=== PATIENT | female | born 1990 | race Caucasian/White ===

== ENCOUNTER → 2021-04-09 14:12 | Outpatient (CLI) | payer OTHER, SELFPAY ==
[2021-04-09 14:37] LABS: Pregnancy Test Urine Negative (Negative)
== END ==
PROVIDERS: Visit Provider Nurse Practitioner
DX: M54.5 Low back pain (principal); R31.9 Hematuria, unspecified; N93.9 Abnormal uterine and vaginal bleeding, unspecified
CPT/HCPCS: 81025; 87086

== ENCOUNTER → 2021-04-18 07:13 | Outpatient (CLI) | payer OTHER, SELFPAY ==
--- NOTE | 2021-04-18 07:15 | DI.US.S_ITS ---
PROCEDURE: US PELVIC COMPLETE INDICATIONS: IUD location, pelvic pain TECHNIQUE: Real-time scanning was performed of the pelvic organs, with image documentation. Additional endovaginal scanning was necessary due to incomplete visualization of the adnexal and endometrial structures by transabdominal scanning. COMPARISON: None. FINDINGS: Uterus: Uterus is normal in size at 3.9 x 4.9 x 8.1 cm. The endometrium is not accurately evaluated due to endometrial IUD positioning. Ovaries: Normal for age measuring 2.1 x 3.0 x 1.9 cm on the right and 2.7 x 2.1 x 1.9 cm on left. Other: No pathologic free abdominal or pelvic fluid. IMPRESSION: Centrally positioned IUD within the endometrial canal. Normal ovaries bilaterally. A definite source of pelvic pain is not seen. IUD positioning is considered normal. Dictated by: William Raymond M.D. on 04/18/2021 at 9:12 Approved by: William Raymond M.D. on 04/18/2021 at 9:14
[2021-04-18 09:06] LABS: Add Manual Diff / Slide Review NO; Basophils Absolute Auto 0 /uL (0-100); Basophils Percent Auto 0.6 % (0-2); Eosinophils Absolute Auto 100 /uL (0-450); Eosinophils Percent Auto 1.2 % (2-4); Hemoglobin 14.5 g/dL (12.0-16.0); Lymphocytes Absolute Auto 1700 /uL (1100-4500); Lymphocytes Percent Auto 20.5 % (25-40); Mean Corpuscular HGB Conc 33.7 % (30-36); Mean Corpuscular Hemoglobin 30.1 PG (26-34); Mean Corpuscular Volume 89.4 fL (80-100); Monocytes Absolute Auto 500 /uL (0-900); Monocytes Percent Auto 5.6 % (3-14); Neutrophils Absolute Auto 6100 /uL (1500-7000); Neutrophils Percent Auto 72.1 % (50-75); Platelet Count 282 X10^3/uL (150-400); Red Blood Cell Count 4.81 X10^6/uL (4.0-5.2); Red Cell Distribution Width 12.8 % (11.6-14.8); White Blood Cell Count 8.4 X10^3/uL (4.5-11.0)
[2021-04-18 09:44] LABS: Alanine Aminotransferase 22 IU/L (<35); Albumin 3.7 g/dL (3.5-5.0); Albumin Globulin Ratio 1.1 (1.0-2.8); Alkaline Phosphatase 82 U/L (38-126); Aspartate Aminotransferase 25 IU/L (14-36); BUN Creatinine Ratio 17.1 (6-22); Bilirubin Total 0.3 mg/dL (0.2-1.3); Blood Urea Nitrogen 12 mg/dL (7-17); Calcium 9.6 mg/dL (8.4-10.2); Carbon Dioxide 28 mmol/L (22-32); Chloride 104 mmol/L (98-107); Estimated Glomerular Filt Rate > 60.0 mL/min (>60); Globulin 3.4 g/dL (1.7-4.1); Glucose 113 mg/dL (70-100); HCG Quantitative /Beta subunit < 2.4 mIU/mL; HEMOLYSIS < 15 (0-50); Lipase 26 U/L (23-300); Potassium 4.9 mmol/L (3.4-5.1); Sodium 138 mmol/L (137-145); Total Protein 7.1 g/dL (6.3-8.2)
== END ==
PROVIDERS: Referring Provider Nurse Practitioner; Visit Provider Nurse Practitioner
DX: R10.2 Pelvic and perineal pain (principal); Z97.5 Presence of (intrauterine) contraceptive device
CPT/HCPCS: 36415; 76830; 76856; 80053; 83690; 84702; 85025

== ENCOUNTER 2021-10-23 19:12 | Emergency (ER) | payer OTHER, SELFPAY ==
[2021-10-23 19:19] VITALS: BP 164/83; PULSE 93; RESP 20; TEMP 36.3; O2SAT 97; BMI 52.9
--- NOTE | 2021-10-23 21:47 | ED.WOUNDLAC ---
HPI - Wound/Laceration General Chief Complaint: Wound/Laceration Stated Complaint: cut thumb/palm Time Seen by Provider: 10/23/21 21:15 Source: patient Mode of arrival: Ambulatory History of Present Illness HPI narrative: 31-year-old female smoker presents with a chief complaint of an accidental laceration to her left hand just prior to arrival. She was using a sharp, new, clean knife to remove zip ties from an object when it slipped and she lacerated her hand as described. She has pain and some bleeding but denies any numbness, tingling or weakness. She denies other injury. She states her tetanus status is not known. She is otherwise well and free of complaint Related Data Home Medications Medication Instructions Recorded Confirmed No Known Home Medications 04/09/21 09/25/21 Allergies Allergy/AdvReac Type Severity Reaction Status Date / Time No Known Drug Allergies Allergy Verified 09/25/21 09:59 Review of Systems Review of Systems Narrative: GENERAL: Denies chills, fatigue, malaise, fever, sweats. HEENT: Denies sinus pain, ear pain, sore throat, difficulty swallowing, dizziness. RESPIRATORY: Denies dyspnea, cough, wheezing, hemoptysis, sputum. CARDIOVASCULAR: Denies chest pain, palpitations, orthopnea, edema, GASTROINTESTINAL: Denies nausea, vomiting, abdominal pain, diarrhea, constipation, melena. : Denies dysuria, frequency, incontinence, hematuria, urinary retention. MUSCULOSKELETAL: See HPI SKIN: See HPI NEUROLOGIC: Denies weakness, headache, numbness, change in speech, confusion, seizures, incoordination. PSYCHIATRIC: No concerning psychosocial issues. 12 point review of systems is negative except for those stated above Patient History Medical History No significant medical problems Social History Smoking Status: Current some day smoker Smoking Status: Current some day smoker alcohol intake frequency: 0-2 drinks per day Substance Use Type: does not use Exam Narrative Exam Narrative: GEN: AOx3 and in mild distress EYES: Pupils are equal, round, and reactive to light and accommodation. Extraoccular muscles are intact bilaterally. There is no subconjunctival hemorrhage or exudate. CHEST: Lungs are clear to auscultation bilaterally and free of wheezes, rales, or rhonchi. Heart rate is regular rhythm, there are no murmurs, clicks, rubs, or gallops. There is no chest wall tenderness. ABD: Abdomen is soft and nontender. There is no guarding or rebound. Bowel sounds are normal in all 4 quadrants. There is no mass or organomegaly. EXT: 4 cm laceration overlying thenar eminence of left hand with a small flap. There is active bleeding and no evidence of foreign body. This is viewed in a bloodless field and no tendon involvement is noted. Full painless ROM of all extremities with no loss of sensation or strength. SKIN: Warm, pink, and dry. No erythema or rash Initial Vital Signs Initial Vital Signs: Vital Signs Temperature 97.4 F L 10/23/21 19:19 Pulse Rate 93 H 10/23/21 19:19 Respiratory Rate 20 10/23/21 19:19 Blood Pressure 164/83 H 10/23/21 19:19 Pulse Oximetry 97 10/23/21 19:19 Procedures Laceration Repair Laceration 1: Site: hand Side (If applicable): left Size (cm): 4 Description: flap Depth: involves muscle layer Local Anesthetic: lidocaine 1% and with bicarb Amount of anesthesia used (mL): 7 Pre-repair: wound explored and irrigated extensively Skin layer closed with: nylon Size (cm): 4-0 Number of sutures: 8 Technique: simple, interrupted Subcutaneous layer closed with: vicryl Size: 4-0 Number of sutures: 2 Technique: simple, interrupted Orthopedic Splinting/Casting Injury #1: Side: left Upper Extremity Injury Location: finger Upper Extremity Immobilizer: finger (other) (gauze) Post splinting neuro exam: intact Post splinting vascular exam: intact Placed by: Nursing Course Orders Ordered: Discontinued Medications Diphtheria/Tetanus/Acell Pertussis (Tet,Diph,Pertuss(Acell),Vac/Pf 0.5 Ml Syringe) 0.5 ml IM .ONCE ONE Stop: 10/23/21 21:49 Last Admin: 10/23/21 22:35 Dose: 0.5 ml Documented by: HA Lidocaine/Sodium Bicarbonate (Lido 1%/Sod Bicarb 8.4% (10ml) 10 Ml Syringe) 10 ml INJ NOW ONE Stop: 10/23/21 21:49 Last Admin: 10/23/21 22:34 Dose: 10 ml Documented by: HA Vital Signs Vital signs: Vital Signs - 8 hr 10/23/21 19:19 Temperature 97.4 F L Pulse Rate 93 H Respiratory Rate 20 Blood Pressure 164/83 H Pulse Oximetry 97 Discharge Plan Departure Patient Disposition: Home Clinical Impression: Laceration of left hand, complicated Instructions: DI for Laceration Repair Activity Restrictions/Additional Instructions: *You have been diagnosed with [left hand laceration] *What to do: *Please continue to take your regular medications as directed. [ ] New medication prescriptions sent to your pharmacy: [ ] [ ] New medication written as a paper prescription [x ] No new medications given * Please keep the wound clean and dry to the best of your ability. Please monitor for signs of infection such as redness to the skin or increasing pain. Have the sutures/celeste removed by your doctor in about 7 days. If you are unable to get into your doctor, we would be happy to remove the sutures/celeste in that same timeframe. *If you do not have a primary care provider please contact the [facility] Resource line at [phone]. They will ask some questions about your medical history and help get you set up with a doctor in the community. *Return to Emergency Department if you should have any new, worsening or concerning symptoms, such as [fever greater than 101 F, shaking chills, worsening pain, persistent vomiting or other bothersome symptoms] Prescriptions: No Action No Known Home Medications 0RF Referrals: Amanda Escobar ARNP [Primary Care Provider] -
[2021-10-23] MEDS: LIDO 1%/SOD BICARB 8.4% (10ML) 10 ML SYRINGE INJ (22:34)
[2021-10-23] MEDS: TET,DIPH,PERTUSS(ACELL),VAC/PF 0.5 ML SYRINGE IM (22:35)
== END 2021-10-23 23:34 | disposition home or self-care (01) ==
PROVIDERS: Emergency Provider Emergency Medicine; PCP Nurse Practitioner
DX: S61.412A Laceration without foreign body of left hand, initial encounter (principal); W26.0XXA Contact with knife, initial encounter; Z23 Encounter for immunization
CPT/HCPCS: 13132; 90471; 99283; 90715

== ENCOUNTER → 2022-01-30 07:45 | Outpatient (CLI) | payer OTHER, SELFPAY ==
[2022-01-30 08:58] LABS: Hemoglobin A1C% w Est Avg Glu 5.4 % (4.0-6.0)
[2022-01-30 09:16] LABS: Alanine Aminotransferase 21 IU/L (<35); Albumin 3.9 g/dL (3.5-5.0); Alkaline Phosphatase 77 U/L (38-126); Aspartate Aminotransferase 26 IU/L (14-36); BUN Creatinine Ratio 18.3 (6-22); Bilirubin Total 0.4 mg/dL (0.2-1.3); Blood Urea Nitrogen 13 mg/dL (7-17); C-Reactive Protein Quant 2.1 mg/dL (<1.0); Calcium 9.1 mg/dL (8.4-10.2); Carbon Dioxide 27 mmol/L (22-32); Chloride 104 mmol/L (98-107); Cholesterol 171 mg/dL (140-199); Estimated Glomerular Filt Rate > 60 mL/min (>60); Globulin 3.9 g/dL (1.7-4.1); Glucose 105 mg/dL (70-100); HDL Cholesterol 34 mg/dL (40-60); HEMOLYSIS < 15 (0-50); LDL Cholesterol Calculated 115 mg/dL (<100); Potassium 4.3 mmol/L (3.4-5.1); Sodium 138 mmol/L (137-145); Total Protein 7.8 g/dL (6.3-8.2); Triglycerides 109 mg/dL (35-150)
[2022-01-30 09:56] LABS: Add Manual Diff / Slide Review NO; Basophils Absolute Auto 0 /uL (0-100); Basophils Percent Auto 0.7 % (0-2); Eosinophils Absolute Auto 100 /uL (0-450); Eosinophils Percent Auto 1.7 % (2-4); Hematocrit 38.3 % (36-46); Hemoglobin 13.1 g/dL (12.0-16.0); Lymphocytes Absolute Auto 1700 /uL (1100-4500); Lymphocytes Percent Auto 24.5 % (25-40); Mean Corpuscular HGB Conc 34.2 % (30-36); Mean Corpuscular Volume 84.8 fL (80-100); Monocytes Absolute Auto 400 /uL (0-900); Monocytes Percent Auto 5.9 % (3-14); Neutrophils Absolute Auto 4700 /uL (1500-7000); Neutrophils Percent Auto 67.2 % (50-75); Platelet Count 308 X10^3/uL (150-400); Red Blood Cell Count 4.52 X10^6/uL (4.0-5.2); Red Cell Distribution Width 13.1 % (11.6-14.8); White Blood Cell Count 6.9 X10^3/uL (4.5-11.0)
[2022-01-30 10:37] LABS: Erythrocyte Sedimentation Rate 45 MM/HR (0-20)
[2022-01-30 11:20] LABS: TSH w/ Reflex to FT4 1.05 uIU/mL (0.47-4.68)
== END ==
PROVIDERS: PCP Family Medicine; Referring Provider Family Medicine; Visit Provider Family Medicine
DX: R53.83 Other fatigue (principal); R63.5 Abnormal weight gain; Z13.220 Encounter for screening for lipoid disorders
CPT/HCPCS: 36415; 80053; 80061; 83036; 84443; 85025; 85651; 86140

== ENCOUNTER → 2022-03-01 12:55 | Outpatient (CLI) | payer OTHER, SELFPAY ==
--- NOTE | 2022-03-01 13:00 | DIET.CONS ---
Dietary Consultation Note Assessment: 32y F attending [address] visit for help with abnormal weight gain and to get educated on bariatric surgery options. 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 Eating Hx: Parents when kids- pt went to [place] in summer with dad calling her his large kid, pt has supportive mom. Grandma showed love with food, [employer] club. Pt has large body frame similar to dad and that side of family. 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 Pt stopped drinking recently but has hx social drinking secondary to job, was smoking but stopped that too. Pt feels portion control is her biggest issue, tends to eat mostly healthy foods but does indulge in unhealthy options. Pt expresses being really hungry then overeating until overfilled because of it. Usual Day: wakes 6:45am B: 3 eggs c cheese, 1-2 turkey sausage or meat Coffee- 32oz white chocolate white coffee Americano c cinnamon and splash of almond milk or if at work uses creamer in black coffee Keeps snacks in fridge- grapes, pickles, cheese and meat, veggie tray L: leftovers- chicken or other meat c veggies and salad but sometimes veggies are gone. sometimes skips lunch, grabs bag chips, sometimes Charles Anderson drinks water but sometimes another coffee loves mcgriddles and breakfast burritos D: loves chicken thighs marinated or seasoned with (used to do pasta or rice), steamer bag veggies and salad bad nights-air fried chicken wings in blue cheese or Juanitas tortilla chips with sliced cheeses Lives in trailer so refrigeration is limited. Ht: 5'11 Wt: 411# BMI: 58 UBW: 200# in HS Nutrition Diagnosis: abnormal weight gain r/t excessive portion sizes secondary to poor meal timing aeb BMI 58, pt >400# with DEIDRA, food recall showing 32oz coffees, 3 egg omelets daily, frequent snacking. Interventions: 1. To address meal timing and portion sizes, educated pt on hunger scale. Pt will eat when a 3 and stop when an 8, pt will not eat unless a 3 and analyze factors around turning to food when above a 3. 2. Request pt monitor food intake using myfitnesspal to bring to visit next week. Set kcal levels to 2100. 3. Discussed smart swaps to start with. Pt will switch to 24oz coffee c 1/2 white chocolate. Pt will purchase [employer] blue cheese dressing at 50kcals/serving rather than regular with 200+kcals per serving. EER: 2100kcals (-1,000kcals from BMR) Monitoring/Evaluations: f/u in 1w to continue education and feeding plan Electronically Signed by: Nunu Howard 03/01/22 13:00 Clinical Dietitian [address] [id number]
[2022-03-01 14:02] VITALS: BMI 55.7
== END ==
PROVIDERS: PCP Nurse Practitioner; Referring Provider Family Medicine; Visit Provider Family Medicine
DX: R63.5 Abnormal weight gain (principal); Z68.43 Body mass index [BMI] 50.0-59.9, adult; Z71.3 Dietary counseling and surveillance
CPT/HCPCS: 97802

== ENCOUNTER → 2022-03-01 13:00 | Outpatient (CLI) | payer OTHER, SELFPAY ==
[2022-03-01 14:57] LABS: Add Manual Diff / Slide Review NO; Basophils Absolute Auto 100 /uL (0-100); Basophils Percent Auto 0.7 % (0-2); Eosinophils Absolute Auto 100 /uL (0-450); Eosinophils Percent Auto 1.5 % (2-4); Hemoglobin 13.5 g/dL (12.0-16.0); Lymphocytes Absolute Auto 2100 /uL (1100-4500); Lymphocytes Percent Auto 22.2 % (25-40); Mean Corpuscular HGB Conc 33.7 % (30-36); Mean Corpuscular Hemoglobin 28.4 PG (26-34); Mean Corpuscular Volume 84.3 fL (80-100); Monocytes Absolute Auto 500 /uL (0-900); Monocytes Percent Auto 5.5 % (3-14); Neutrophils Absolute Auto 6500 /uL (1500-7000); Neutrophils Percent Auto 70.1 % (50-75); Platelet Count 335 X10^3/uL (150-400); Red Blood Cell Count 4.74 X10^6/uL (4.0-5.2); White Blood Cell Count 9.3 X10^3/uL (4.5-11.0)
[2022-03-01 15:13] LABS: Erythrocyte Sedimentation Rate 25 MM/HR (0-20)
[2022-03-01 15:14] LABS: Creatine Kinase 93 U/L (30-135)
[2022-03-01 16:28] LABS: Appearance Urine UA CLEAR; Bilirubin Urine UA NEGATIVE (NEGATIVE); Color Urine UA YELLOW; Glucose Urine UA NEGATIVE (Negative); Ketones Urine UA NEGATIVE (NEGATIVE); Leukocyte Esterase Urine UA NEGATIVE (NEGATIVE); Nitrite Urine UA NEGATIVE (Negative); Occult Blood Urine UA NEGATIVE (Negative); Protein Urine UA NEGATIVE (Negative); Specific Gravity Urine UA 1.015 (1.000-1.035); Urobilinogen Urine UA 0.2 E.U./dL (0.2)
[2022-03-01 16:34] LABS: pH Urine UA 5.5 (4.5-8.0)
[2022-03-01 17:22] LABS: C-Reactive Protein Quant 2.3 mg/dL (<1.0)
[2022-03-01 17:35] LABS: RBC Urine None Seen (0-5/HPF); Squamous Epithelial Cell Urine 0-1 /HPF (0-5/HPF); WBC Urine 0-1/HPF (0-5/HPF)
[2022-03-01 17:36] LABS: Amorphous Sediment Urine 1+; Bacteria Urine Occasional (0-1); Culture Indicated Urine Cult Not Indicated
== END ==
PROVIDERS: PCP Nurse Practitioner; Referring Provider Pediatrics; Visit Provider Pediatrics
DX: E66.01 Morbid (severe) obesity due to excess calories (principal); K59.00 Constipation, unspecified; R70.0 Elevated erythrocyte sedimentation rate; R79.82 Elevated C-reactive protein (CRP); R80.9 Proteinuria, unspecified
CPT/HCPCS: 36415; 81001; 82550; 85025; 85651; 86140

== ENCOUNTER → 2022-03-08 08:12 | Outpatient (CLI) | payer OTHER, SELFPAY ==
--- NOTE | 2022-03-08 08:15 | DIET.OUTPTC ---
Dietary Outpatient Consultation Note Consultation Date: 03/08/2022 32y F attending 1w f/u for help with abnormal weight gain. Pt has been tracking her meals intermittently this week and notices she is eating ~700kcals over her 2100kcal limit to spur weight loss. Pt is surprised because she thought she was making mostly healthy choices. Pts highest kcal items are [employer]anni[employer] tortilla chips (340kcal), daily coffee (660kcals), and items when she is eating out like meat lovers pizza. One day shows 100g added sugar which is 4x pts sugar goal. Pts boyfriend took her out for dinner last night but she was not hungry, ended up eating anyway. Pt frustrated by this as her partner likes to show love with food and she has gained 100# since they got together. Pt reports continued constipation, has not had BM for 2d, feeling bloated. Review of myfitness pal shows pt only attaining 50% fiber reccs per day. Interventions: 1. Worked c pt to set calorie limits per meal so she has enough kcals left for end of day. 400 breakfast, 650 lunch, 850 dinner, 200 snacks. 2. To address high kcal items, collaborated on items for smart swaps: lower kcal tortilla chips, Premier Protein drink as coffee creamer, ordering Mod pizza online as you can build your own pizza with kcal levels of toppings listed. 3. Discussed ways to broach conversation with partner on showing love with food. Pt will check in with her hunger and if not hungry, will not go out for a meal. Pt will suggest saving money for romantic hotel stay (they want to swim in pool). Discussed short term pleasure from energy dense foods, but longterm negative effect on pts physical and mental health (pt wants to lose weight, is self conscious, >400# at 32yo. 4. To address constipation, educated pt on fiber content of foods, set goal for 25g daily. Practiced label reading for fiber. Pt will purchase artichoke hearts and add to salads. Educated pt on importance of movement, fiber, and fluids for healthy BMs. 5. To support pts weight loss and address pts high sugar intake, educated pt on brains reward pathway. Practiced label reading for added sugar. Discussed healthy swaps for high sugar foods. Monitoring/Evaluations: f/u in 2w to continue education and support. Electronically Signed by: Nunu Howard 03/08/22 08:15 Clinical Dietitian [address] [address]
== END ==
PROVIDERS: PCP Nurse Practitioner; Referring Provider Nurse Practitioner; Visit Provider Nurse Practitioner
DX: R63.5 Abnormal weight gain (principal); Z71.3 Dietary counseling and surveillance
CPT/HCPCS: 97803

== ENCOUNTER → 2022-03-22 07:33 | Outpatient (CLI) | payer OTHER, SELFPAY ==
--- NOTE | 2022-03-22 07:36 | DI.RAD.S_ITS ---
PROCEDURE: XR LUMBAR SPINE 2-3V INDICATIONS: right sides parasthesias, chronic back pain, morbid obese TECHNIQUE: <3> views of the lumbar spine were acquired. COMPARISON: None. FINDINGS: Bones: There are 5 [id number] lumbar type vertebral bodies. No acute fracture. No spondylolisthesis. Minimal overall spondylosis. Soft tissues: IUD in place. IMPRESSION: Minimal overall spondylosis. No acute findings. Consider MRI to further assess for disc disease. Dictated by: Adelfo Tirado M.D. on 03/22/2022 at 9:53 Approved by: Adelfo Tirado M.D. on 03/22/2022 at 9:54
--- NOTE | 2022-03-22 08:25 | DIET.OUTPTC ---
Dietary Outpatient Consultation Note Consultation Date: 03/22/2022 32y F attending f/u RD visit for weight management. Pt has been purchasing 32oz plain coffee daily and adding her own Premier Protein drink as a coffee creamer taking kcals down from 600 to 100 (-500kcals/d). Pt went out with friend for dinner and drinks, normally would get burger, fries, apps, and cocktails, instead just had cocktails and apps, felt satisfied and proud of herself. Pt did vodka spritzer instead of whiskey cola to reduce kcals. Pt having some difficulty c logging food on [employer] but is still trying. She has been taking pictures of meals and products to show me. Pt purchased high fiber tortillas (6g each) and feels this switch has improved her constipation. Pt not being very active, mostly sedentary. Spent session using motivational techniques to decrease sedentary time and increase active time. Pt will designate herself as person to take out trash and mop floors at work to break up sedentary time, also will do short walks throughout the day to monitor [place] park. Pt meets pamela Castro next week for weigh in, to establish care, and to take first steps for bariatric surgery consult. Nutrition f/u scheduled for 3w. Electronically Signed by: Nunu Howard 03/22/22 08:25 Clinical Dietitian [address] [address]
== END ==
PROVIDERS: PCP Nurse Practitioner; Referring Provider Pediatrics; Visit Provider Pediatrics
DX: E66.01 Morbid (severe) obesity due to excess calories (principal); K59.00 Constipation, unspecified; R70.0 Elevated erythrocyte sedimentation rate; R79.82 Elevated C-reactive protein (CRP); M47.816 Spondylosis without myelopathy or radiculopathy, lumbar region; Z71.3 Dietary counseling and surveillance
CPT/HCPCS: 72100; 97803

== ENCOUNTER → 2022-04-12 08:26 | Outpatient (CLI) | payer OTHER, SELFPAY ==
--- NOTE | 2022-04-12 08:31 | DIET.OUTPTC ---
Dietary Outpatient Consultation Note Consultation Date: 04/12/[address] 32[address] f/u for help with weight management and for information on bariatric surgery. Pt reports she got initial denial from insurance for bariatric surgery even though she meets their qualifications of BMI >40, severe DEIDRA with cpap use, and prior failed weight loss efforts. 393# (-3# since PCP visit 2w ago) Pt has increased her mindfulness substantially regarding food and beverage choices. Pt seems to be doing well with two meal and two snack routine but finds limiting sugary drinks difficult. Pt has changed to premier protein drinks with coffee in morning and is trying Spark energy from coffee shop instead of Agnes as it has significantly less sugar. Pt purchasing low carb tortillas, sugar free protein bars. Pt having difficulty establishing and exercise routine, she is currently working 6d per week so is exhausted by the end of her day. 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 Interventions: 1. Reinforced pts mindfulness and smart food modifications thus far, along with 3# weight loss. 2. Problem solved exercises with pt. Encouraged pt to walk to work instead of driving each morning. Currently pt lives at the [employer] [place] she works at. She drives to the coffee shop then up by the office. Pt will try getting her coffee then parking at home and walking into the office. Pts partner is interested in weight training and they do have a gym on site for use. Encouraged pt to try light weights twice weekly to support her core strength and support LBM. f/u in 4w. Electronically Signed by: Nunu Howard 04/12/22 08:31 Clinical Dietitian [address] [address]
== END ==
PROVIDERS: PCP Nurse Practitioner; Referring Provider Pediatrics; Visit Provider Pediatrics
DX: G47.33 Obstructive sleep apnea (adult) (pediatric) (principal); Z71.3 Dietary counseling and surveillance
CPT/HCPCS: 97803

== ENCOUNTER → 2022-05-17 08:30 | Outpatient (CLI) | payer OTHER, SELFPAY ==
--- NOTE | 2022-05-17 17:23 | DIET.OUTPTC ---
Dietary Outpatient Consultation Note Consultation Date: 05/17/[address] 32[address] visit for help with weight management. Pt has lost 3# since our last visit 1mo ago. Pt had gained 100# over the past year so is doing great job in turning around weight gain and building sustainable habits. Pt continuing to drink her coffee using a bariatric formula protein shake, skips her daily afternoon energy drink, and instead of having a friend bring her sweets from [employer], she asks for fruit and veggie trays or keto snacks. 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 Pt still having difficulty with increasing steps and intentional exercise. Pt considering hiring personal training to learn exercises to strengthen her body. Pt reports since increasing fiber she is having BM daily rather than q3d. Pt hoping to increase rate of weight loss but enjoying the loss she has achieved so far. Pt states her partner and clients are all noticing she is thinning out, this is reassuring to her. Interventions: 1. Motivational interviewing regarding role of physical activity in overall wellness. Discussed starting new habits is difficult and to start small to build momentum. Introduced pt to [employer] station on Youtube for body inclusive exercises. Encouraged pt that increasing exercise will help accelerate weight loss. 2. Reinforced all of the good dietary changes pt is making. Increased dietary fiber, consumption F/V, hunger and fullness awareness and sticking to lower kcal and lower carb etoh when consuming it. F/u in 5 weeks to continue education and monitoring. Electronically Signed by: Nunu Howard 05/17/22 17:23 Clinical Dietitian [address] [address]
== END ==
PROVIDERS: PCP Nurse Practitioner; Referring Provider Nurse Practitioner; Visit Provider Nurse Practitioner
DX: Z71.3 Dietary counseling and surveillance (principal)
CPT/HCPCS: 97803

== ENCOUNTER → 2022-06-25 10:15 | Outpatient (CLI) | payer OTHER, SELFPAY ==
--- NOTE | 2022-06-25 10:30 | DIET.OUTPTC ---
Dietary Outpatient Consultation Note Consultation Date: 06/25/[address] 32[address] visit for help with weight management. Current weight: 384# (-6# since April, -16# total) Pt progressing with weight loss despite of her maternal grandmother. Pt being mindful of food choices, has significantly lowered intake sugar sweetened items. Pt with a few slips including too many etoh drinks leading to big pasta meal at night. Pt having difficulties with increasing physical activity. 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 Interventions: 1. Reiterated pts good work with weight loss thus far. Pt losing ~5#/mo. 2. To address pts eating habits and slips, spent majority of session discussing self-talk and following healthy eating 80% of time at best. Educated pt on methods to identify behavior patterns which support her goals and those that derail her goals. Pt to valdovinos in on negative thinking patterns and turn them around to become supportive and curious. Reiterated pts good efforts and diverting sweets that are brought into her work and limiting her intake without complete elimination. 3. To address pts continued resistance to exercise, discussed achievable options pt can do while at work such as squats, calf raises, and wall push ups. Pt will attempt these at work and will research further. f/u prn Electronically Signed by: Nunu Howard 06/25/22 10:30 Clinical Dietitian [address] [address]
== END ==
PROVIDERS: PCP Nurse Practitioner; Referring Provider Nurse Practitioner; Visit Provider Nurse Practitioner
DX: Z71.3 Dietary counseling and surveillance (principal)
CPT/HCPCS: 97803

== ENCOUNTER → 2022-06-25 10:31 | Outpatient (CLI) | payer OTHER, SELFPAY ==
--- NOTE | 2022-06-25 10:32 | DI.RAD.S_ITS ---
PROCEDURE: XR THORACIC SPINE 3V INDICATIONS: thoracic pain TECHNIQUE: 4 views of the thoracic spine were acquired. COMPARISON: [facility], CR, XR LUMBAR SPINE 2-3V, 03/22/2022, 8:29. FINDINGS: Bones: No fractures or dislocations. No suspicious bony lesions. 12pairs of ribs are noted, and appear intact where visualized. Soft tissues: No paravertebral stripe thickening. IMPRESSION: Unremarkable radiographic examination of thoracic spine. No compression fracture or spondylolisthesis. Dictated by: Lukas Abel M.D. on 06/25/2022 at 13:26 Approved by: Lukas Abel M.D. on 06/25/2022 at 13:35
--- NOTE | 2022-06-25 10:32 | DI.ECHO.S_ITS ---
Version: 1 Study ID: [id number] [place] [address] Name: DIONE LOCKETT Study Date: 06/25/2022, 11: 49 AM : 1990 BP: 132 / 83 mmHg Gender: Female Height: 71 in Age: 32 Years Weight: 384 lb BSA: 2.8 mA? Ordering: SRIDHAR VALLADARES Referring: RICK STORM Clinician: Kayce Brantley Reason For Study: RIGHT SIDED PARASTHESIA, CHRONIC BACK PAIN History: Summary Statements This is a technically difficult study enhanced with Definity echocontrast. Normal sinus rhythm. Normal LV size, wall thickness, wall motion and LV systolic function. EF is 60-65%. Normal chamber sizes. No significant valvular abnormalities. No prior study avialable for comparison. Procedure: A two-dimensional transthoracic echocardiogram with color flow and Doppler was performed. The study quality was technically difficult. Images were not obtained from all of the standard acoustic windows due to the limited scope of the study. A contrast injection of Definity was performed to improve assessment of LV function. There is no prior echocardiogram noted for this patient. The patient was in sinus rhythm with heart rates between 65-76 bpm during the exam. Left Ventricle: The ejection fraction is estimated to be 60-65%. The left ventricle is borderline dilated. Right Ventricle: The right ventricle is normal in size and function. Atria: There is no Doppler evidence for an interatrial shunt. The left atrial size is normal. Right atrial size is normal. Mitral Valve: There is trace mitral regurgitation. The mitral valve is normal in structure and function. Aortic Valve: No aortic regurgitation is present. There is no aortic valve stenosis. The aortic valve is not well visualized. Tricuspid Valve: There is trace tricuspid regurgitation. Pulmonary artery pressures cannot be estimated because of the lack of a measurable TR jet velocity. The tricuspid valve is not well visualized, but is grossly normal. Pulmonic Valve: There is no pulmonic valvular regurgitation. The pulmonic valve is not well visualized. Great Vessels: The dimensions of the ascending aorta are normal. The aortic root is normal size. The inferior vena cava was not well visualized. Pericardium/ Pleura: There is no pericardial effusion. There is no pleural effusion. 2D and M-Mode Measurements and Calculations LVIDd: 6.0 cm LVOT diam: 2.36 cm LVIDs: 4.5 cm Ao root diam: 3.3 cm IVSd: 1.32 cm asc Aorta Diam: 2.8 cm LVPWd: 0.99 cm Ao Arch Diam (Prox Trans): 2.8 cm LV barakat. diameter/BSA (cm/m^2): 2.14 LV sys. diameter/BSA (cm/m^2): 1.63 RVD1 (basal): 4.0 cm RVD2 (mid): 3.1 cm TAPSE: 2.6 cm LA A4 area: 22.9 coat repair inspector? RA area: 21.3 coat repair inspector? LA A2 area: 19.4 coat repair inspector? RA long axis: 5.6 cm LA length (vol): 6.1 cm RA vol: 68.6 ml LA vol: 61.9 ml RA : 24.7 ml/mA? LA vol index: 22.2 ml/mA? Doppler Measurements and Calculations Ao V2 max: 159.5 cm/sec LVOT Max Vamsi: 104.9 cm/sec Ao V2 mean: 105.3 cm/sec LV V1 max P.4 mmHg Ao V2 VTI: 33.3 cm LV V1 VTI: 22.9 cm Ao max P.2 mmHg Ao mean P.1 mmHg ELI(I,D): 3.0 coat repair inspector? ELI(V,D): 2.9 coat repair inspector? ELI indexed to BSA (cm^2/m^2): 1.08 sev ratio: 0.69 MV E max vamsi: 75.8 cm/sec MV dec time: 0.21 sec MV A max vamsi: 55.1 cm/sec MV E/A: 1.37 Med Peak E' Vamsi: 9.8 cm/sec Lat Peak E' Vamsi: 13.0 cm/sec E/e' average: 6.8 PA V2 max: 98.4 cm/sec PA mean P.40 mmHg Electronically signed by: Alysha Kowalski M.D. 06/26/2022, 9: 07 AM
--- NOTE | 2022-06-25 10:32 | DI.RAD.S_ITS ---
PROCEDURE: XR LUMBAR SPINE 2-3V INDICATIONS: thoracic pain, lumbar pain TECHNIQUE: 3 views of the lumbar spine were acquired. COMPARISON: [facility], CR, XR LUMBAR SPINE 2-3V, 03/22/2022, 8:29. FINDINGS: Bones: 5 [id number] vertebrae are present. There is normal bony alignment. No vertebral body compression fractures. No suspicious bony lesions. Soft tissues: Overlying bowel gas pattern is normal. No suspicious soft tissue calcifications. Intrauterine device is again seen. IMPRESSION: No compression fracture or spondylolisthesis. No significant degenerative disc disease. Dictated by: Lukas Abel M.D. on 06/25/2022 at 13:35 Approved by: Lukas Abel M.D. on 06/25/2022 at 13:36
== END ==
PROVIDERS: PCP Nurse Practitioner; Referring Provider Pediatrics; Visit Provider Pediatrics
DX: M54.50 Low back pain, unspecified (principal); M54.6 Pain in thoracic spine; E66.01 Morbid (severe) obesity due to excess calories; R79.82 Elevated C-reactive protein (CRP); K59.00 Constipation, unspecified; R70.0 Elevated erythrocyte sedimentation rate
CPT/HCPCS: 72072; 72100; C8929; Q9957

== ENCOUNTER → 2022-08-16 08:32 | Outpatient (CLI) | payer OTHER, SELFPAY ==
--- NOTE | 2022-08-16 13:31 | DIET.OUTPTC ---
Dietary Outpatient Consultation Note Consultation Date: 08/16/2022 32[address] f/u for help with weight management. Pt currently on Metformin c largest meal of day (though pt often forgets) and phentermine for appetite suppression. Wt: 381# (-3# in 6w, -19# total) Pt states she has slipped several times since our last visit, eating higher carb diet and being sedentary. Pt states she got her sugary coffee 3x in one week then realized she was falling into old patterns so stopped. Pt states she is overindulging in etoh which doesn't help her food choices. Pt worked out at the gym once since last visit with BF. Pt states she did not want to do it but once she started it was really fun and she felt proud of herself. Pt did 10 min on treadmill and 20min weight training with medicine ball. Really felt sore the next day, but good sore. Pt would benefit from trial of Wegovy to help with appetite suppression in place of phentermine along with continuing dietary reccs prioritizing lean proteins and veggies at meals. Goals for this month: 1. 30 min at gym on Sat or Sat mornings with BF. 2. Meal plan on Saturday mornings for week. 3. Make extra serving of dinners to have as lunch next day. f/u PRN Electronically Signed by: Nunu Howard 08/16/22 13:31 Clinical Dietitian [address] [address]
== END ==
PROVIDERS: PCP Nurse Practitioner; Referring Provider Nurse Practitioner; Visit Provider Nurse Practitioner
DX: Z71.3 Dietary counseling and surveillance (principal)
CPT/HCPCS: 97803

== ENCOUNTER 2022-08-27 00:52 | Emergency (ER) | payer OTHER, SELFPAY ==
[2022-08-27 00:56] VITALS: BP 153/92; PULSE 77; RESP 20; O2SAT 100; BMI 52.9
--- NOTE | 2022-08-27 01:00 | PC.NURSE ---
has not had a good bm in a few days
--- NOTE | 2022-08-27 01:09 | ED.GENADULT ---
HPI - General Adult General Chief complaint: Abdominal Pain Stated complaint: abd pain Time Seen by Provider: 08/27/22 00:53 Source: patient Mode of arrival: Ambulatory History of Present Illness HPI narrative: 32-year-old woman with morbid obesity, CPAP use for apnea presents with acute onset of upper abdominal pain that awoke her from sleep this evening. 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 She does not describe any fevers, cough, chills, myalgias, headaches. She states that she was sound asleep the pain woke her up as she tried to roll onto her right side and now feels like it is radiating through toward her back. She complains that her tummy feels tight and bloated. She notes that she has not been passing much gas this evening which is unusual for her. Her last bowel movement was yesterday and was relatively normal. She is never had reflux or ulcer issues and does still have her gallbladder in place. Related Data Home Medications Medication Instructions Recorded Confirmed levonorgestrel 20 mcg/24 hours (8 intrauterine 03/27/22 08/09/22 yrs) 52 mg intrauterine device (Mirena) Previous Rx's Medication Instructions Recorded docusate sodium 100 mg capsule 100 mg PO BID constipation #60 caps 02/20/22 (Colace) psyllium husk (aspartame) 3.4 gram 1 packet PO DAILY #1 ea 03/27/22 oral powder packet (Metamucil Fiber Singles) metformin 500 mg tablet 500 mg PO DAILY #90 tabs 06/20/22 phentermine 37.5 mg tablet 18.75 mg PO BID #90 tabs 06/20/22 semaglutide (weight loss) 0.25 0.25 mg (0.5 mL) SUBCUT QWEEK #2 mL 08/24/22 mg/0.5 mL subcutaneous pen injector (Wegovy) Allergies Allergy/AdvReac Type Severity Reaction Status Date / Time No Known Drug Allergies Allergy Verified 08/09/22 09:04 Review of Systems Review of Systems Narrative: Remainder of complete review of systems is otherwise unremarkable except for that included in the HPI. Patient History Medical History Asymptomatic proteinuria Dependence on CPAP ventilation Elevated C-reactive protein (CRP) Elevated erythrocyte sedimentation rate Elevated fasting glucose Low back pain radiating to right leg Lumbar back pain No significant medical problems Obstructive sleep apnea syndrome, severe Pain of right lateral upper thigh Sciatic nerve pain Spondylarthritis Thoracic back pain Social History Smoking Status: Former smoker Tobacco: How many years used: 12 alcohol intake: current substance use type: marijuana Smoking Status: Former smoker alcohol intake frequency: 0-2 drinks per day Substance Use Type: does not use Exam Initial Vital Signs Initial Vital Signs: Vital Signs Pulse Rate 77 08/27/22 00:56 Respiratory Rate 20 08/27/22 00:56 Blood Pressure 153/92 H 08/27/22 00:56 Pulse Oximetry 100 08/27/22 00:56 Oxygen Delivery Method 08/27/22 00:56 General: Healthy appearing, in mild distress. Able to give a complete and coherent history. Well-nourished well-developed HEENT: Moist mucous membranes, normal sclera with reactive pupils, Neck: No cervical adenopathy,, supple Respiratory: Lungs are clear to auscultation, no wheezing no rales no rhonchi. Full and symmetrical air movement Cardiac: Regular rate and rhythm no murmurs no bruits Abdomen: Soft, mild tenderness in the upper quadrants without specific tenderness over her gallbladder. No rebound or guarding and hypoactive bowel tones, no flank pain. Skin: Warm and dry, no rashes Neurologic: Grossly neurologically intact with no obvious asymmetries or abnormalities Extremities: No trauma, well perfused Psych: Cooperative, appropriate insight and affect Course Orders Ordered: ED Orders 08/27/22 01:00 Complete Blood Count AUTO DIFF Stat Comprehensive Metabolic Panel Stat Lipase Stat 08/27/22 01:18 XR abdomen 1V Stat Discontinued Medications Sodium Chloride (Normal Saline 0.9%) 1,000 mls @ 1,000 mls/hr IV BOLUS ONE Stop: 08/27/22 02:17 Last Admin: 08/27/22 01:52 Dose: 1,000 mls/hr Documented By: JOVON Ketorolac Tromethamine (Ketorolac 30 Mg/Ml Vial) 15 mg IV NOW ONE Stop: 08/27/22 02:42 Last Admin: 08/27/22 02:50 Dose: 15 mg Documented By: JOVON Ondansetron HCl (Ondansetron 4 Mg/2 Ml Inj) 4 mg IV NOW ONE Stop: 08/27/22 01:19 Last Admin: 08/27/22 01:53 Dose: 4 mg Documented By: JOVON Pantoprazole Sodium (Pantoprazole 40 Mg Vial) 40 mg IV NOW ONE Stop: 08/27/22 01:19 Last Admin: 08/27/22 01:52 Dose: 40 mg Documented By: JOVON Vital Signs Vital signs: Vital Signs - 8 hr 08/27/22 00:56 Pulse Rate 77 Respiratory Rate 20 Blood Pressure 153/92 H Pulse Oximetry 100 Oxygen Delivery Method Room Air Medical Decision Making Lab Data Result diagrams: 08/27/22 01:00 08/27/22 01:00 Labs: Lab Results 08/27/22 08/27/22 Range/Units 01:00 01:00 WBC 9.7 (4.5-11.0) X10^3/uL RBC 4.49 (4.0-5.2) X10^6/uL Hgb 12.7 (12.0-16.0) g/dL Hct 38.5 (36-46) % MCV 85.7 (80-100) fL MCH 28.2 (26-34) PG MCHC 32.9 (30-36) % RDW 13.3 (11.6-14.8) % Plt Count 366 (150-400) X10^3/uL Neut % (Auto) 62.5 (50-75) % Lymph % (Auto) 29.8 (25-40) % [place] % (Auto) 5.2 (3-14) % Eos % (Auto) 1.9 L (2-4) % Baso % (Auto) 0.6 (0-2) % Neut # (Auto) 6100 (7836-5512) /uL Lymph # (Auto) 2900 (1255-5362) /uL [place] # (Auto) 500 (0-900) /uL Eos # (Auto) 200 (0-450) /uL Baso # (Auto) 100 (0-100) /uL Sodium 141 (137-145) mmol/L Potassium 3.8 (3.4-5.1) mmol/L Chloride 101 (98-107) mmol/L Carbon Dioxide 29 (22-32) mmol/L BUN 11 (7-17) mg/dL Creatinine 0.78 (0.52-1.04) mg/dL Estimated GFR > 60 (>60) mL/min BUN/Creatinine Ratio 14.1 (6-22) Glucose 112 H (70-100) mg/dL Calcium 8.8 (8.4-10.2) mg/dL Total Bilirubin 0.3 (0.2-1.3) mg/dL AST 23 (14-36) IU/L ALT 26 (<35) IU/L Alkaline Phosphatase 101 (38-126) U/L Total Protein 7.8 (6.3-8.2) g/dL Albumin 3.8 (3.5-5.0) g/dL Globulin 4.0 (1.7-4.1) g/dL Albumin/Globulin Ratio 1.0 (1.0-2.8) Lipase 32 (23-300) U/L Imaging Data Abdominal x-ray: Radiologist's Impression: FINDINGS:? ? Surgical changes and devices:? None.? ? Bowel:? Bowel gas pattern is nonspecific.? Prominent colonic stool is present.? Very small fluid levels are noted. ? Soft tissues:? No suspicious abdominal calcifications.? Visualized solid organ contours appear normal in size.? ? Bones:? No suspicious bony lesions.? ? IMPRESSION:? Prominent colonic stool most consistent constipation.? Several small fluid levels are noted.? These are overall nonspecific although ileus cannot be excluded. ? ? Dictated by: Nila Gregorio M.D. on 08/27/2022 at 1:37 ? [facility] Narrative Medical decision making narrative: 32-year-old woman who was woken from sleep with upper abdominal pain that is not specifically localizing. She does note that she is had significant dietary indiscretions after fairly strict dietary restrictions recently. Differential includes infectious etiology, pancreatitis, gallbladder disease, gastritis, gastric ulcer, constipation, bowel obstruction. Cardiac and pulmonary etiologies are less likely Lab work is unremarkable in terms of chemistries and CBC. No evidence of pancreatitis. X-ray that is independently reviewed by me of her abdomen does suggest quite a bit of stool loading and moderate air which may explain the gaseous discomfort. Findings reviewed with patient, she is re-examined, she does not have a surgical abdomen. Discussed probable constipation as a cause of her discomfort. She does have stool softeners and laxatives at home and has had issues with this previously so knows how to help get her bowels moving. Questions are answered and patient is safe for discharge home Discharge Plan Departure Patient Disposition: Home Clinical Impression: Abdominal pain Qualifiers: Abdominal location: upper abdomen, unspecified Qualified Code(s): R10.10 - Upper abdominal pain, unspecified Constipation Qualifiers: Constipation type: unspecified constipation type Qualified Code(s): K59.00 - Constipation, unspecified Instructions: DI for Abdominal Pain-Adult, DI for Constipation Activity Restrictions/Additional Instructions: Thank you for coming in today Your blood work and x-ray are quite reassuring. I do not see any evidence of acute surgical findings, bacterial infection or suggestion of acute cholecystitis. Your x-ray looks like you do have quite a bit of gas and stool throughout your colon and I suspect that is part of what is causing your pain and discomfort. I would recommend stool softeners and laxatives tomorrow to see if encouraging a bowel movement helps alleviate your pain. If you find that you are getting worse or develop any new symptoms, please feel free to return to the emergency department for further evaluation. Prescriptions: No Action Wegovy 0.25 mg/0.5 mL pen injector 0.25 mg SUBCUT QWEEK Qty: 2 1RF Rx Instructions: administer weeks 1 through 4 of therapy docusate sodium [Colace] 100 mg capsule 100 mg PO BID Qty: 60 3RF Rx Instructions: Trial one pill twice daily for a month unless diarrhea or not otherwise tolerated. Could then go to one pill once or twice daily as needed. Mirena 20 mcg/24 hours (7 yrs) 52 mg intrauterine device intrauterine Metamucil Fiber Singles 3.4 gram powder in packet 1 packet PO DAILY Qty: 1 0RF phentermine 37.5 mg tablet 18.75 mg PO BID Qty: 90 2RF Rx Instructions: must administer 30 minutes before or 1-2 hours after first and second meal of the day metformin 500 mg tablet 500 mg PO DAILY Qty: 90 3RF Rx Instructions: Take 1 tab daily with biggest meal of the day Referrals: Lorraine Castro ARNP [Primary Care Provider] - Visit Report Forms: Patient Portal/API
--- NOTE | 2022-08-27 01:18 | DI.RAD.S_ITS ---
PROCEDURE: XR ABDOMEN 1V INDICATIONS: abdominal pain TECHNIQUE: One view of the abdomen acquired. COMPARISON: None. FINDINGS: Surgical changes and devices: None. Bowel: Bowel gas pattern is nonspecific. Prominent colonic stool is present. Very small fluid levels are noted. Soft tissues: No suspicious abdominal calcifications. Visualized solid organ contours appear normal in size. Bones: No suspicious bony lesions. IMPRESSION: Prominent colonic stool most consistent constipation. Several small fluid levels are noted. These are overall nonspecific although ileus cannot be excluded. Dictated by: Nila Gregorio M.D. on 08/27/2022 at 1:37 Approved by: Nila Gregorio M.D. on 08/27/2022 at 1:37
[2022-08-27 01:30] LABS: Add Manual Diff / Slide Review NO; Basophils Absolute Auto 100 /uL (0-100); Basophils Percent Auto 0.6 % (0-2); Eosinophils Absolute Auto 200 /uL (0-450); Eosinophils Percent Auto 1.9 % (2-4); Hematocrit 38.5 % (36-46); Hemoglobin 12.7 g/dL (12.0-16.0); Lymphocytes Absolute Auto 2900 /uL (1100-4500); Lymphocytes Percent Auto 29.8 % (25-40); Mean Corpuscular HGB Conc 32.9 % (30-36); Mean Corpuscular Hemoglobin 28.2 PG (26-34); Mean Corpuscular Volume 85.7 fL (80-100); Monocytes Absolute Auto 500 /uL (0-900); Monocytes Percent Auto 5.2 % (3-14); Neutrophils Absolute Auto 6100 /uL (1500-7000); Neutrophils Percent Auto 62.5 % (50-75); Platelet Count 366 X10^3/uL (150-400); Red Blood Cell Count 4.49 X10^6/uL (4.0-5.2); Red Cell Distribution Width 13.3 % (11.6-14.8); White Blood Cell Count 9.7 X10^3/uL (4.5-11.0)
[2022-08-27 01:34] LABS: Alanine Aminotransferase 26 IU/L (<35); Albumin 3.8 g/dL (3.5-5.0); Alkaline Phosphatase 101 U/L (38-126); Aspartate Aminotransferase 23 IU/L (14-36); BUN Creatinine Ratio 14.1 (6-22); Bilirubin Total 0.3 mg/dL (0.2-1.3); Blood Urea Nitrogen 11 mg/dL (7-17); Calcium 8.8 mg/dL (8.4-10.2); Carbon Dioxide 29 mmol/L (22-32); Chloride 101 mmol/L (98-107); Estimated Glomerular Filt Rate > 60 mL/min (>60); Glucose 112 mg/dL (70-100); HEMOLYSIS < 15 (0-50); Lipase 32 U/L (23-300); Potassium 3.8 mmol/L (3.4-5.1); Sodium 141 mmol/L (137-145); Total Protein 7.8 g/dL (6.3-8.2)
[2022-08-27] MEDS: PANTOPRAZOLE 40 MG VIAL IV (01:52)
[2022-08-27] MEDS: SODIUM CHLORIDE 0.9% 1,000 ML 1000 ML IV (01:52)
[2022-08-27] MEDS: ONDANSETRON 4 MG/2 ML INJ IV (01:53)
[2022-08-27] MEDS: KETOROLAC 30 MG/ML VIAL 15 MG IV (02:50)
== END 2022-08-27 02:55 | disposition home or self-care (01) ==
PROVIDERS: Emergency Provider Emergency Medicine; PCP Nurse Practitioner
DX: R10.10 Upper abdominal pain, unspecified (principal); K59.00 Constipation, unspecified
CPT/HCPCS: 36415; 74018; 80053; 83690; 85025; 96374; 96375; 99284; C9113; J1885; J2405

== ENCOUNTER 2022-11-08 13:02 | Day surgery (SDC) | payer OTHER, SELFPAY ==
--- NOTE | 2022-11-08 | PATH_ITS ---
[facility] Accession Number: [id number] No. of containers..03 Tissue . 01 Material submitted: . PART A: stomach - BIOPSY OF ANTRUM PART B: esophagus - BIOPSY GE JUNCTION PART C: colon - SIGMOID COLON POLYP . 01 Diagnosis: A. Stomach, Antrum, Biopsy: Antral mucosa with mild chronic gastritis. Negative for Helicobacter organisms by immunohistochemistry. Negative for intestinal metaplasia. Negative for dysplasia and malignancy. . B. Gastroesophageal Junction, Biopsy: Squamous mucosa with no diagnostic abnormality. Intraepithelial eosinophils are not increased. Negative for dysplasia and malignancy. . C. Sigmoid Colon, Polyp, Biopsy: Hyperplastic polyp. [facility] 11/13/2022 0947 Local . 01 Electronically signed: . Jaymie Law MD, Pathologist NPI- [id number] . 01 Gross description: . Part A: BIOPSY OF ANTRUM: Received in formalin is 1 fragment(s) of guerra, soft tissue measuring 0.3 x 0.1 x 0.1 cm submitted entirely in 1 cassette(s) Part B: BIOPSY GE JUNCTION: Received in formalin are 2 fragment(s) of guerra, soft tissue measuring 0.3 x 0.2 x 0.1 cm to 0.2 x 0.1 x 0.1 cm submitted entirely in 1 cassette(s) Part C: SIGMOID COLON POLYP: Received in formalin is 1 fragment(s) of guerra, soft tissue measuring 0.3 x 0.3 x 0.3 cm submitted entirely in 1 cassette(s) /CPE 11/09/2022 0633 Local . 01 Microscopic: . A. An immunohistochemical stain was performed to evaluate for Helicobacter organisms and is negative. The control stain showed appropriate reactivity. . . * This test was developed and its performance characteristics determined by [facility]. It has not been cleared or approved by the U.S. Food and Drug Administration. The FDA has determined that such clearance or approval is not necessary. This test is used for clinical purposes. It should not be regarded as investigational or for research. . 01 Pathologist provided ICD-10: R10.13, K63.5 . 01 CPT . 224065, 191542, 646725, G34515 Specimen Comment: A courtesy copy of this report has been sent to [phone] Performed at: [facility] [address] [place] [address], [place], [place] [id number] MD Kobe Mckeon MD Phone: [phone]
[2022-11-08 13:25] VITALS: BP 147/80; PULSE 92; RESP 20; TEMP 36.6; O2SAT 98; BMI 52.9
[2022-11-08] MEDS: LACTATED RINGERS 1,000 ML 42 ML IV (13:41)
[2022-11-08 14:50] VITALS: BP 121/78; PULSE 89; RESP 14; TEMP 37.3; O2SAT 99
[2022-11-08 14:55] VITALS: BP 134/85; PULSE 86; RESP 18; TEMP 37; O2SAT 98
--- NOTE | 2022-11-08 14:55 | PM.OP.EC ---
Operative Date/Time/Diagnoses Date of procedure: 11/08/22 Time of procedure: 14:55 Pre-op diagnosis: Dyspepsia Post-op diagnosis: same Procedure & Clinicians Study performed: EGD and colonoscopy Same procedure as scheduled: Yes Surgeon: Festus Valencia Procedure Notes Procedure in detail: Surgeon: Festus Valencia MD Anesthesia: Lisa Bower CRNA Procedure in detail: A timeout was performed. A bite blocked was placed and monitors were attached to the patient. The patient was positioned in a left lateral decubitus position. Sedation was administered. Once the patient was sedated the endoscope was inserted through the bite block and passed through the esophagus and stomach and into the duodenum. The duodenum appeared normal. We then withdrew the scope into the stomach. There was mild antritis and random biopsies were taken from the antrum. The endoscope was retroflexed and no hiatal hernia was seen. The endoscope was straightned and withdrawn into the esophagus. There was some mild inflammation around the GE junction and random biopsies were taken from the GE junction. Findings: Mild antritis and esophagitis at the GE junction Next we repositioned the patient for a colonoscopy. A digital rectal exam was performed and was normal. The colonoscope was inserted and advanced to the cecum. The appendiceal orifice was identified and photographed. The scope was slowly withdrawn over greater than 6 minutes. There was a 5 mm polyp in the sigmoid colon removed with a cold snare. The scope was retroflexed in the rectum and no other abnormalities were seen. Findings: 5 mm polyp in the sigmoid colon EBL: 5 mL Scope withdrawal time: 8 minutes Sedation minutes: 30 minutes Post-procedure Disposition: PACU
[2022-11-08 15:00] VITALS: BP 134/80; PULSE 83; RESP 18; TEMP 37.1; O2SAT 98
[2022-11-08 15:24] VITALS: BP 140/89; PULSE 79; RESP 16; TEMP 37.1; O2SAT 99
== END 2022-11-08 15:25 | disposition home or self-care (01) ==
PROVIDERS: PCP Nurse Practitioner; Referring Provider Surgery; Visit Provider Surgery
PROC: 0DJD8ZZ Inspection of Lower Intestinal Tract, Via Natural or Artificial Opening Endoscopic (ICD-10-PCS; CPT 45378; principal; 2022-11-08 14:15)
PROC: 0DJ08ZZ Inspection of Upper Intestinal Tract, Via Natural or Artificial Opening Endoscopic (ICD-10-PCS; CPT 43235; 2022-11-08 14:15)
DX: R10.13 Epigastric pain (principal); R19.4 Change in bowel habit; K29.50 Unspecified chronic gastritis without bleeding; K20.90 Esophagitis, unspecified without bleeding; K63.5 Polyp of colon
CPT/HCPCS: 45385; 43239; J2704

== ENCOUNTER → 2024-03-02 07:56 | Outpatient (CLI) | payer OTHER, SELFPAY | PROVIDERS: PCP Nurse Practitioner; Visit Provider Nurse Practitioner Family | DX: R30.0 Dysuria (principal) | CPT/HCPCS: 87077; 87086; 87210 ==

== ENCOUNTER → 2024-04-28 09:32 | Outpatient (CLI) | payer OTHER, SELFPAY ==
[2024-04-28 10:18] LABS: Add Manual Diff / Slide Review NO; Basophils Absolute Auto 0 /uL (0-100); Basophils Percent Auto 0.6 % (0-2); Eosinophils Absolute Auto 100 /uL (0-450); Eosinophils Percent Auto 1.3 % (2-4); Hematocrit 41.6 % (36-46); Hemoglobin 13.9 g/dL (12.0-16.0); Lymphocytes Absolute Auto 1900 /uL (1100-4500); Lymphocytes Percent Auto 25.2 % (25-40); Mean Corpuscular HGB Conc 33.5 % (30-36); Mean Corpuscular Hemoglobin 29.7 PG (26-34); Mean Corpuscular Volume 88.5 fL (80-100); Monocytes Absolute Auto 400 /uL (0-900); Monocytes Percent Auto 4.8 % (3-14); Neutrophils Absolute Auto 5100 /uL (1500-7000); Neutrophils Percent Auto 68.1 % (50-75); Platelet Count 358 X10^3/uL (150-400); Red Cell Distribution Width 12.9 % (11.6-14.8); White Blood Cell Count 7.6 X10^3/uL (4.5-11.0)
[2024-04-28 10:28] LABS: Hemoglobin A1C% w Est Avg Glu 4.9 % (4.0-6.0)
[2024-04-28 10:49] LABS: Creatinine Urine Random 100.47 mg/dL
[2024-04-28 10:52] LABS: Microalbumin Urine Random 0.8 mg/dL (0-1.6)
[2024-04-28 11:02] LABS: Free T3, Triiodothyronine Free 3.39 pg/mL (2.77-5.27); Free T4, Direct Thyroxine 0.95 ng/dL (0.78-2.19)
[2024-04-28 11:08] LABS: Alanine Aminotransferase 23 IU/L (<35); Albumin Globulin Ratio 1.2 (1.0-2.8); Alkaline Phosphatase 81 U/L (38-126); Aspartate Aminotransferase 24 IU/L (14-36); BUN Creatinine Ratio 17.1 (6-22); Bilirubin Total 0.5 mg/dL (0.2-1.3); Blood Urea Nitrogen 13 mg/dL (7-17); Calcium 9.1 mg/dL (8.4-10.2); Carbon Dioxide 25 mmol/L (22-32); Chloride 106 mmol/L (98-107); Cholesterol 181 mg/dL (140-199); Estimated Glomerular Filt Rate > 60 mL/min (>60); Globulin 3.4 g/dL (1.7-4.1); Glucose 96 mg/dL (70-100); HDL Cholesterol 38 mg/dL (40-60); HEMOLYSIS < 15 (0-50); LDL Cholesterol Calculated 119 mg/dL (<100); Potassium 4.4 mmol/L (3.4-5.1); Sodium 138 mmol/L (137-145); Total Protein 7.4 g/dL (6.3-8.2); Triglycerides 118 mg/dL (35-150)
[2024-04-28 11:16] LABS: Thyroid Stimulating Hormone 1.95 uIU/mL (0.47-4.68)
[2024-04-28 11:23] LABS: Prolactin 11.3 ng/mL (3.0-18.6)
[2024-04-28 11:38] LABS: Testosterone 45.4 ng/dL (5.71-77.0)
[2024-04-28 12:22] LABS: HIV 1 & 2 Ab/Ag 4th Gen Combo NEGATIVE (NEGATIVE); Hep C Virus Ab w/Reflex Quant NEGATIVE s/c (NEGATIVE)
[2024-04-28 15:07] LABS: Progesterone, Total 1.18 ng/mL
== END ==
PROVIDERS: PCP Nurse Practitioner; Referring Provider Nurse Practitioner; Visit Provider Nurse Practitioner
DX: Z00.00 Encounter for general adult medical examination without abnormal findings (principal); E28.2 Polycystic ovarian syndrome; Z11.59 Encounter for screening for other viral diseases; Z11.4 Encounter for screening for human immunodeficiency virus [HIV]
CPT/HCPCS: 36415; 80053; 80061; 82043; 82570; 83001; 83036; 84144; 84146; 84403; 84439; 84443; 84481; 85025; 86803; 87389

== ENCOUNTER → 2024-05-20 17:33 | Outpatient (CLI) | payer OTHER, SELFPAY | PROVIDERS: PCP Nurse Practitioner; Referring Provider Nurse Practitioner Family; Visit Provider Nurse Practitioner Family | DX: R30.0 Dysuria (principal) | CPT/HCPCS: 87086; 87210 ==

== ENCOUNTER → 2024-05-22 08:51 | Outpatient (CLI) | payer OTHER, SELFPAY | PROVIDERS: PCP Nurse Practitioner; Visit Provider Physician Assistant Surgical | DX: R30.0 Dysuria (principal) | CPT/HCPCS: 87077; 87086; 87186 ==

== ENCOUNTER → 2024-11-13 12:52 | Outpatient (CLI) | payer OTHER, SELFPAY ==
--- NOTE | 2024-11-16 15:20 | DIET.OUTPTC ---
Dietary Outpatient Consultation Note Consultation Date: 11/13/2024 Assessment:? 34 y F referred to dietitian for obesity. Missy reports meeting with dietitian Nunu previously, which was very helpful, has maintained multiple lifestyle patterns from those visits. Is on semaglutide now and experiencing weight loss, now 336 lb. Wants to re-establish appts for accountability. Looking for help to maintain physical activity, wanting to drink more fluids, and adjust nutrition as needed. Recently switched to new job 4 wks ago that is more sedentary, before was outside getting 10 k steps in daily and lifting things. 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 Additionally requested any physical labor jobs (i.e pressure washing). In meantime is going to try to walk 10 minutes on lunch break. Does feel she will be more active as weather starts to warm up because in addition to walks on weekends will also do task for parents like pressure washing or yard work. Notes constipation with less movement and fluids. Diet recall: B-egg sandwich with 1 sl cheese and whole grain bread that is 7 g fiber for 2 sl coffee L-sandwich w/ turkey and cheese and [place] package of chips akiko energy drink (added sugars) D-chx and salad with boathouse dressing As needed: low carb protein bar Drinks at least 32 oz fluids daily 2 vodka cocktails or 1 glass of wine 3-4x/wk Activity: 30 minutes walks with dog daily (10 minutes mornings, 20 minutes after work) 20-30 minute walks on weekend +additional 5-10 minutes ones throughout day as needed Labs: low HDL 38 and high LDL 119 in Jun 2024 Nutrition Diagnosis:? Excessive energy intake r/t daily energy dense drink aeb 1 akiko with 39 g added sugar daily Food and nutrition related knowledge deficit r/t changes in lab values ( elevated LDL and low HDL) aeb pt with questions how to improve lab values via nutrition Interventions:? -Discussed hydration goals and brainstormed ideas to increase fluids consistently to at least 64 oz-96 oz (2-3 water bottles) -Saturated fats vs MUFAs PUFAs and label reading educ, compared products in session -Discussed activity goals of wanting to take mini breaks at work to get up from desk and walk or do physical labor jobs (i.e. 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 Pt requests a 6 wk follow up d/t many other appts Electronically Signed by: Betsey Castro 11/16/24 15:20 Clinical Dietitian [address] [address]
== END ==
PROVIDERS: PCP Registered Nurse; Referring Provider Registered Nurse
DX: E66.01 Morbid (severe) obesity due to excess calories (principal); Z68.41 Body mass index [BMI] 40.0-44.9, adult; Z71.3 Dietary counseling and surveillance
CPT/HCPCS: 97802

== ENCOUNTER 2025-01-22 19:47 | Emergency (ER) | payer OTHER, SELFPAY ==
[2025-01-22 20:01] VITALS: BP 180/103; PULSE 64; RESP 19; TEMP 36.2; O2SAT 100; BMI 47.4
--- NOTE | 2025-01-22 20:06 | EKG_ITS ---
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
[2025-01-22] MEDS: ONDANSETRON 4 MG/2 ML INJ IV (20:54)
[2025-01-22 21:00] LABS: Add Manual Diff / Slide Review NO; Basophils Absolute Auto 100 /uL (0-100); Basophils Percent Auto 0.8 % (0-2); Eosinophils Absolute Auto 100 /uL (0-450); Hematocrit 40.9 % (36-46); Hemoglobin 13.9 g/dL (12.0-16.0); Lymphocytes Absolute Auto 1900 /uL (1100-4500); Lymphocytes Percent Auto 17.3 % (25-40); Mean Corpuscular HGB Conc 34.1 % (30-36); Mean Corpuscular Hemoglobin 29.8 PG (26-34); Mean Corpuscular Volume 87.5 fL (80-100); Monocytes Absolute Auto 500 /uL (0-900); Monocytes Percent Auto 4.6 % (3-14); Neutrophils Absolute Auto 8200 /uL (1500-7000); Neutrophils Percent Auto 76.3 % (50-75); Platelet Count 381 X10^3/uL (150-400); Red Blood Cell Count 4.67 X10^6/uL (4.0-5.2); Red Cell Distribution Width 13.3 % (11.6-14.8); White Blood Cell Count 10.7 X10^3/uL (4.5-11.0)
[2025-01-22] MEDS: KETOROLAC 30 MG/ML VIAL 15 MG IV (21:05)
[2025-01-22 21:07] LABS: Alanine Aminotransferase 19 IU/L (<35); Albumin 4.4 g/dL (3.5-5.0); Albumin Globulin Ratio 1.2 (1.0-2.8); Alkaline Phosphatase 83 U/L (38-126); Aspartate Aminotransferase 24 IU/L (14-36); BUN Creatinine Ratio 22.7 (6-22); Bilirubin Total 0.3 mg/dL (0.2-1.3); Blood Urea Nitrogen 20 mg/dL (7-17); Calcium 9.4 mg/dL (8.4-10.2); Carbon Dioxide 27 mmol/L (22-32); Chloride 101 mmol/L (98-107); Estimated Glomerular Filt Rate > 60 mL/min (>60); Globulin 3.6 g/dL (1.7-4.1); Glucose 106 mg/dL (70-99); HEMOLYSIS < 15 (0-50); Lipase 29 U/L (23-300); Sodium 135 mmol/L (137-145)
[2025-01-22 22:53] VITALS: BP 185/85
[2025-01-22 22:54] VITALS: PULSE 60; O2SAT 100
[2025-01-22 23:00] VITALS: PULSE 50; O2SAT 100
[2025-01-22 23:09] LABS: Bacteria Urine Occasional (0-1); Calcium Oxalate Crystals Urine Occasional; Culture Indicated Urine Cult Not Indicated; RBC Urine 10-30/HPF (0-5/HPF); Squamous Epithelial Cell Urine 0-1 /HPF (0-5/HPF); Urine Volume 10mL (spun); WBC Urine None Seen (0-5/HPF)
[2025-01-22 23:30] VITALS: PULSE 56; O2SAT 100
[2025-01-22 23:31] VITALS: BP 177/79; PULSE 64; O2SAT 100
--- NOTE | 2025-01-22 23:58 | ED_ITS ---
HPI - Abdominal Pain General Chief Complaint: Abdominal Pain Stated Complaint: severe stomach pain, back pain Time Seen by Provider: 01/22/25 23:54 Source: patient, RN notes reviewed and old records reviewed Mode of arrival: Ambulatory Limitations: no limitations History of Present Illness HPI narrative: 35-year-old female presents with complaint of abdominal pain she arrives sort of lower abdomen, but states it has a little bit back into the flank earlier. Started earlier today after she had eaten a sandwich and had some cucumbers and was shortly after that. Has had 1 prior episode that was similar after large Thanksgiving meal but resolved. Patient states no fevers. She was had some nausea but no vomiting. Denies any lower abdominal pain. States she has been a little bit constipated, no black or bloody stools. No dysuria urgency or frequency. States she was has a little bit of vaginal spotting which isn't atypical she does have IUD in place. She denies any rash or skin changes. States she takes Wellbutrin, phentermine and metformin for weight loss. Patient has a an IUD denies other surgeries. Does use tobacco daily, drinks 2 times weekly 2-4 drinks at a time, no recreational drugs. Alisia Iraheta is her primary care physician. Related Data Home Medications Medication Instructions Recorded Confirmed levonorgestrel 21 mcg/24 hr (up to intrauterine 03/27/22 06/05/24 8 years) 52 mg intrauterine device (Mirena) psyllium husk 3.4 gram oral powder 1 packet PO DAILY PRN 10/02/23 06/05/24 packet (Metamucil Fiber Singles) Previous Rx's Medication Instructions Recorded phentermine 37.5 mg tablet 37.5 mg PO BID #180 tabs 07/18/23 bupropion HCl 300 mg 24 hr tablet, 300 mg PO QAM #90 tabs 10/02/23 extended release metformin 500 mg tablet 500 mg PO DAILY #90 tabs 10/02/23 Semaglutide 1mg/ml See Rx Instructions .Route 04/27/24 .COMPLEX #2 mL phenazopyridine 200 mg tablet 200 mg PO TID PRN pain #9 tabs 05/22/24 (Pyridium) Allergies Allergy/AdvReac Type Severity Reaction Status Date / Time No Known Drug Allergies Allergy Verified 06/05/24 09:33 Review of Systems Review of Systems ROS Unobtainable: All systems reviewed & are unremarkable except as noted in HPI and below Patient History Medical History IUD (intrauterine device) in place Excess sun exposure PCOS (polycystic ovarian syndrome) Class 3 obesity Grief counseling Depression Sciatic nerve pain Lumbar back pain Thoracic back pain Dependence on CPAP ventilation Obstructive sleep apnea syndrome, severe Elevated fasting glucose Low back pain radiating to right leg Pain of right lateral upper thigh Spondylarthritis Asymptomatic proteinuria Elevated erythrocyte sedimentation rate Elevated C-reactive protein (CRP) No significant medical problems Social History Smoking Status: Current every day smoker Tobacco: How many years used: 12 alcohol intake: current substance use type: marijuana Smoking Status: Current every day smoker alcohol intake frequency: a few times a week Exam Narrative Exam Narrative: GENERAL: Alert and oriented x three, female in mild distress. HEENT: Head normocephalic, atraumatic, EOMI, pupils reactive, face symmetric, moist mucous membranes NECK: Supple, full range of motion CARDIOVASCULAR: Regular rate and rhythm without murmurs, rubs or gallops. RESPIRATORY: Breath sounds equal bilaterally, no wheezes rales or rhonchi. ABDOMEN: Soft, positive for right upper quadrant tenderness. Normoactive bowel sounds all 4 quadrants. No guarding or rebound, rigidity, no mass : No CVA tenderness bilaterally EXTREMITIES: Normal range of motion, no clubbing or edema. Neurovascularly intact NEUROLOGICAL: Cranial nerves II through XII grossly intact. Moving all extremities SKIN: Warm, dry, no petechiae, no rashes or lesions. Initial Vital Signs Initial Vital Signs: Vital Signs Temperature 97.1 F L 01/22/25 20:01 Pulse Rate 64 01/22/25 20:01 Respiratory Rate 19 01/22/25 20:01 Blood Pressure 180/103 H 01/22/25 20:01 Pulse Oximetry 100 01/22/25 20:01 Oxygen Delivery Method Room Air 01/22/25 20:01 Course Orders Ordered: ED Orders 01/22/25 20:06 EKG-12 Lead Stat 01/22/25 20:48 Complete Blood Count AUTO DIFF Stat Comprehensive Metabolic Panel Stat Lipase Stat 01/22/25 22:52 Urine Microscopic Stat 01/23/25 00:45 US abdomen limited Stat Discontinued Medications Acetaminophen (Ofirmev) 1,000 mg in 100 mls @ 400 mls/hr IV NOW ONE Stop: 01/23/25 00:23 Last Infusion: 01/23/25 01:01 Dose: Infused Documented By: Admin: 01/23/25 00:40 Dose: 400 mls/hr Documented By: JOSE Ketorolac Tromethamine (Ketorolac 30 Mg/Ml Vial) 15 mg IV NOW ONE Stop: 01/22/25 21:03 Last Admin: 01/22/25 21:05 Dose: 15 mg Documented By: JOSE Ondansetron HCl (Ondansetron 4 Mg/2 Ml Inj) 4 mg IV NOW PRN PRN Reason: Nausea And Vomiting Last Admin: 01/22/25 20:54 Dose: 4 mg Documented By: JOSE Ondansetron HCl (Ondansetron 4 Mg Odt) 4 mg PO NOW PRN PRN Reason: Nausea And Vomiting Tramadol HCl (Tramadol 50 Mg Prepack) 1 bottle MISC DIRECTED ONE Stop: 01/23/25 01:36 Last Admin: 01/23/25 01:42 Dose: 1 bottle Documented By: CATE Vital Signs Vital signs: Vital Signs - 8 hr 01/22/25 20:01 01/22/25 22:53 01/22/25 22:54 Temperature 97.1 F L Pulse Rate 64 60 Respiratory Rate 19 Blood Pressure 180/103 H 185/85 H Pulse Oximetry 100 100 Oxygen Delivery Method Room Air 01/22/25 23:00 01/22/25 23:30 01/22/25 23:31 Temperature Pulse Rate 50 L 56 L 64 Respiratory Rate Blood Pressure Pulse Oximetry 100 100 100 Oxygen Delivery Method 01/22/25 23:31 01/23/25 00:00 01/23/25 00:00 Temperature Pulse Rate 67 Respiratory Rate Blood Pressure 177/79 H 160/86 H Pulse Oximetry 100 Oxygen Delivery Method 01/23/25 00:30 01/23/25 00:30 01/23/25 01:00 Temperature Pulse Rate 71 69 Respiratory Rate Blood Pressure 149/81 H Pulse Oximetry 98 97 Oxygen Delivery Method 01/23/25 01:30 01/23/25 01:37 01/23/25 01:37 Temperature Pulse Rate 86 82 Respiratory Rate Blood Pressure 140/73 Pulse Oximetry 95 99 Oxygen Delivery Method Room Air MDM - Abdominal Pain Lab Data 01/22/25 20:48 01/22/25 20:48 Labs: Lab Results 01/22/25 01/22/25 Range/Units 20:48 22:52 WBC 10.7 (4.5-11.0) X10^3/uL RBC 4.67 (4.0-5.2) X10^6/uL Hgb 13.9 (12.0-16.0) g/dL Hct 40.9 (36-46) % MCV 87.5 (80-100) fL MCH 29.8 (26-34) PG MCHC 34.1 (30-36) % RDW 13.3 (11.6-14.8) % Plt Count 381 (150-400) X10^3/uL Neut % (Auto) 76.3 H (50-75) % Lymph % (Auto) 17.3 L (25-40) % [place] % (Auto) 4.6 (3-14) % Eos % (Auto) 1.0 L (2-4) % Baso % (Auto) 0.8 (0-2) % Neut # (Auto) 8200 H (8517-5892) /uL Lymph # (Auto) 1900 (2101-1101) /uL [place] # (Auto) 500 (0-900) /uL Eos # (Auto) 100 (0-450) /uL Baso # (Auto) 100 (0-100) /uL Sodium 135 L (137-145) mmol/L Potassium 4.0 (3.4-5.1) mmol/L Chloride 101 (98-107) mmol/L Carbon Dioxide 27 (22-32) mmol/L BUN 20 H (7-17) mg/dL Creatinine 0.88 (0.52-1.04) mg/dL Estimated GFR > 60 (>60) mL/min BUN/Creatinine Ratio 22.7 H (6-22) Glucose 106 H (70-99) mg/dL Calcium 9.4 (8.4-10.2) mg/dL Total Bilirubin 0.3 (0.2-1.3) mg/dL AST 24 (14-36) IU/L ALT 19 (<35) IU/L Alkaline Phosphatase 83 (38-126) U/L Total Protein 8.0 (6.3-8.2) g/dL Albumin 4.4 (3.5-5.0) g/dL Globulin 3.6 (1.7-4.1) g/dL Albumin/Globulin Ratio 1.2 (1.0-2.8) Lipase 29 (23-300) U/L Urine RBC 10-30/hpf H (0-5/HPF) Urine WBC None seen (0-5/HPF) Ur Squamous Epith Cells 0-1 /hpf (0-5/HPF) Calcium Oxalate Crystal Occasional H Urine Bacteria Occasional (0-1) (None) Ur Culture Indicated? Cult not indicated Vol Urine Centrifuged 10ml (spun) Point of care testing: Point of Care Testing Test Results Negative Urine Dip Bedside Urine Glucose Negative Bedside Urine Bilirubin - Negative Bedside Urine Ketone - Negative Urine Specific [place] 1.03 Bedside Urine Occult Blood ++ Bedside Urine pH 6 Bedside Urine Protein - Negative Bedside Urine Urobilinogen - Negative Bedside Urine Nitrite - Negative Bedside Urine Leukocytes - Negative Esterase MDM Narrative Medical decision making narrative: Normal white count hemoglobin and platelets, sodium is 135 lytes are normal BUN 20 creatinine 0.88 glucose is 106 LFTs are negative lipase is 29. Point of care urine is negative. Positive for blood negative for nitrates or leukocyte esterase. Racing through 10-30 RBCs, no white cells 1 squamous occasional oxalate crystal. Patient does note she was currently having some vaginal spotting. Right upper quadrant ultrasound liver prominent size measures 20.7 cm increased echogenicity consistent with a hepatic steatosis. Other forms of hepatocellular disease could have similar appearance. No acute cholecystitis. No gallstones. Patient had Toradol and Zofran had some improvement but pain is reoccurring, had acetaminophen, on recheck she states she feels significantly improved. She would like to return home. Reviewed patient's findings 35-year-old female history of obesity appears to have some hepatic steatosis on ultrasound but no gallbladder disease appreciated. Labs are overall normal patient has a little bit of red cells but notes she was has a little bit of spotting which is not atypical when she would normally have her menses. She has improved in terms of symptoms after Toradol and acetaminophen. Discussed obtaining CT but she feels comfortable returning home with return precautions. All questions answered. Discharge Plan Departure Patient Disposition: Home Clinical Impression: Abdominal pain Instructions: DI for Abdominal Pain-Adult Activity Restrictions/Additional Instructions: I hope you continue to feel improved. You can continue with ibuprofen up to 600 mg every 6 hours and/or acetaminophen up to a 1000 mg every 6 hours as needed. If inadequate for pain you can take tramadol 1 2 tablets every 6 hours. This medication can make you sleepy do not drive, perform hazardous activities or make any major decisions while taking it. This medication will make you constipated please take a stool softener once to twice daily until stools are soft and regular. Please return for fevers, rapidly worsening or persistent abdominal, back or flank pain, persistent vomiting, black or bloody stools, difficulty with urination, new rash or skin changes or other new or concerning changes. Prescriptions: No Action phenazopyridine [Pyridium] 200 mg tablet 200 mg PO TID PRN (Reason: pain) Qty: 9 0RF Rx Instructions: x 2 days Mirena 20 mcg/24 hours (7 yrs) 52 mg intrauterine device intrauterine phentermine 37.5 mg tablet 37.5 mg PO BID Qty: 180 2RF Rx Instructions: must administer 30 minutes before or 1-2 hours after first and second meal of the day, weight loss Semaglutide 1mg/ml See Rx Instructions .ROUTE .COMPLEX Qty: 2 3RF Rx Instructions: 0.5mg SQ weekly x4 weeks, then increased to 1mg if not loosing weight. Metamucil Fiber Singles 3.4 gram powder in packet 1 packet PO DAILY PRN bupropion HCl 300 mg tablet extended release 24 hr 300 mg PO QAM Qty: 90 3RF Rx Instructions: Take 1 tab each morning. metformin 500 mg tablet 500 mg PO DAILY Qty: 90 3RF Rx Instructions: Take with food daily Referrals: Alisia Iraheta ARNP [Primary Care Provider] - Stand Alone Forms: Patient Portal/API/Survey
[2025-01-23] VITALS: BP 160/86; PULSE 67; O2SAT 100
[2025-01-23 00:30] VITALS: BP 149/81; PULSE 71; O2SAT 98
[2025-01-23] MEDS: ACETAMINOPHEN IV 1,000 MG/100 ML VIAL 400 MG IV (00:40)
--- NOTE | 2025-01-23 00:45 | DI.US.S_ITS ---
PROCEDURE: US ABDOMEN LIMITED INDICATIONS: upper abdominal pain TECHNIQUE: Real-time scanning was performed of the abdominal and retroperitoneal organs, with image documentation. COMPARISON: None. FINDINGS: Liver: Measures 20.7 cm. Prominent size. Increased in echogenicity. Main portal vein demonstrates hepatopetal flow with a peak systolic velocity of 50 cm/sec. Diameter of the main portal vein is 1.6 cm. Gallbladder: No gallstones. No wall thickening. No pericholecystic edema. Negative sonographic Alves's sign. Biliary ducts: Intrahepatic bile ducts are non-dilated. Extrahepatic bile duct caliber measures 3 mm. Normal is 6-7 mm or less in diameter, or 10 mm or less post-cholecystectomy. Pancreas: Visualized portions of the pancreas are sonographically normal. Miscellaneous: No free abdominal fluid. IMPRESSION: 1. No acute cholecystitis. No gallstones. 2. Prominent liver size. Increased hepatic echogenicity most consistent with hepatic steatosis. Other forms of hepatocellular disease could have similar appearance. Dictated by: Williams Glass M.D. on 01/23/2025 at 1:01 Approved by: Williams Glass M.D. on 01/23/2025 at 1:04
[2025-01-23 01:00] VITALS: PULSE 69; O2SAT 97
[2025-01-23 01:30] VITALS: PULSE 86; O2SAT 95
[2025-01-23 01:37] VITALS: BP 140/73; PULSE 82; O2SAT 99
[2025-01-23] MEDS: TRAMADOL 50 MG PREPACK 1 BOTTLE MISC (01:42)
== END 2025-01-23 01:46 | disposition home or self-care (01) ==
PROVIDERS: Emergency Provider Emergency Medicine; PCP Registered Nurse
DX: R10.9 Unspecified abdominal pain (principal); R00.1 Bradycardia, unspecified; R11.0 Nausea
CPT/HCPCS: 36415; 76705; 80053; 81003; 81015; 81025; 83690; 85025; 93005; 96365; 96375; 99284; J0131; J1885; J2405